=== PATIENT | female | born 1965 | race Caucasian/White ===

== ENCOUNTER → 2017-11-06 | Outpatient (CLI) | payer OTHER ==
--- NOTE | 2017-11-06 15:46 | RAD ---
Right Lower Extremity Venous Doppler Ultrasound Indication: Right lower extremity edema. Comparison: None. Procedure: Color Doppler, spectral Doppler, and grayscale images with and without compression are obtained in the area of the common femoral vein, superficial femoral vein - femoral vein junction, main femoral vein (superficial femoral vein) and popliteal vein. Veins of the proximal calf are also imaged. Findings: There is normal duplex flow, color flow and compressibility of all visualized vein segments. There is no evidence of deep venous thrombosis. There is a right Medel's cyst measuring 2.7 x 1.5 x 4.3 cm. Impression: 1. No evidence of right lower extremity deep venous thrombosis. 2. Right Medel's cyst. Electronically signed by: Woody Hoang MD (11/06/2017 3:42 PM) [place] [id number]
== END | disposition home or self-care (01) ==
LOC: US 10:41 → EEVIPCON 11:00
DX: M71.21 Synovial cyst of popliteal space [Baker], right knee (principal)
CPT/HCPCS: 93971

== ENCOUNTER → 2020-02-24 | Outpatient (CLI) | payer OTHER | END | disposition home or self-care (01) | LOC: SPEC 23:16 | PROVIDERS: ATTEND Family Medicine | DX: R07.9 Chest pain, unspecified (principal) | CPT/HCPCS: 36415; 84484 ==